=== PATIENT | female | born 1965 | race Two or more races ===

== ENCOUNTER 2017-04-02 22:06 | Emergency (ER) | payer BC, MEDICAID, OTHER ==
[~2017-04-02] VITALS: Ht 154.9 cm; Wt 70.4 kg
[2017-04-03 00:55] VITALS: BP 138/79
== END 2017-04-03 01:50 | disposition home or self-care (01) ==
LOC: ER 22:40
DX: J01.90 Acute sinusitis, unspecified (principal)
CPT/HCPCS: 99283